=== PATIENT | male | born 1995 | race Caucasian/White ===

== ENCOUNTER → 2016-12-31 | Outpatient (CLI) | payer BC, MEDICAID ==
[~2016-12-31] MED LIST: ABILIFMAIN300; ABILIFY2 MG PO; CIPRO 500MG TA500 MG PO; CORTISPORIN OTI10 ML OT; NO HOME MEDICATIONS; RISPERDAL 1M1 MG/TAB PO; [UNRECOGNIZED DRUG - REMARK]
== END ==
LOC: BHSO 12:46
DX: F20.89 Other schizophrenia (principal)

== ENCOUNTER → 2017-01-29 | Outpatient (CLI) | payer BC, MEDICAID | LOC: BHSO 12:52 | DX: F20.9 Schizophrenia, unspecified (principal) ==

== ENCOUNTER → 2017-02-28 | Outpatient (CLI) | payer BC, MEDICAID | LOC: BHSO 11:06 | DX: F20.89 Other schizophrenia (principal) ==

== ENCOUNTER → 2017-04-01 | Outpatient (CLI) | payer BC, MEDICAID | LOC: BHSO 14:03 | DX: F20.9 Schizophrenia, unspecified (principal) ==

== ENCOUNTER → 2017-04-02 | Outpatient (CLI) | payer BC, MEDICAID | LOC: BHSO 15:34 | DX: F20.9 Schizophrenia, unspecified (principal) ==

== ENCOUNTER 2017-04-13 21:40 | Emergency (ER) | payer BC, MEDICAID ==
[~2017-04-13] VITALS: Ht 182.9 cm; Wt 75.5 kg
[~2017-04-13 21:40] MED LIST changes: -ABILIFMAIN300; -ABILIFY2 MG PO; -CORTISPORIN OTI10 ML OT; -[UNRECOGNIZED DRUG - REMARK]
[2017-04-13 21:41] VITALS: BP 103/60; TEMP 98
[2017-04-13] MEDS ORDERED: [UNRECOGNIZED DRUG - REMARK] (21:46)
[2017-04-13 22:20] VITALS: PULSE 126
== END 2017-04-13 22:33 | disposition home or self-care (01) ==
LOC: COL.ER 21:40
DX: T16.2XXA Foreign body in left ear, initial encounter (principal)

== ENCOUNTER → 2017-05-27 | Outpatient (CLI) | payer BC, MEDICAID ==
[~2017-05-27] MED LIST changes: +ABILIFMAIN300; +ABILIFY2 MG PO; +CORTISPORIN OTI10 ML OT; +[UNRECOGNIZED DRUG - REMARK]
== END ==
LOC: BHSO 13:15
DX: F20.9 Schizophrenia, unspecified (principal)

== ENCOUNTER 2017-05-31 05:37 | Emergency (ER) | payer BC, MEDICAID ==
[~2017-05-31] VITALS: Ht 182.9 cm; Wt 72.7 kg
[~2017-05-31 05:37] MED LIST changes: -ABILIFMAIN300; -ABILIFY2 MG PO; -CORTISPORIN OTI10 ML OT
[2017-05-31] MEDS ORDERED: ABILIFY2 MG PO (05:41)
[2017-05-31] MEDS ORDERED: ABILIFMAIN300 (05:42)
[2017-05-31] MEDS ORDERED: CORTISPORIN OTI10 ML OT (06:25)
[2017-05-31 06:36] VITALS: BP 112/78; PULSE 63; TEMP 97.8
== END 2017-05-31 06:36 | disposition home or self-care (01) ==
LOC: COL.ER 05:37
DX: H60.91 Unspecified otitis externa, right ear (principal); H61.21 Impacted cerumen, right ear; F17.210 Nicotine dependence, cigarettes, uncomplicated; F12.90 Cannabis use, unspecified, uncomplicated; F20.9 Schizophrenia, unspecified; F31.9 Bipolar disorder, unspecified; J45.909 Unspecified asthma, uncomplicated; Z98.890 Other specified postprocedural states

== ENCOUNTER 2017-06-21 17:59 | Emergency (ER) | payer BC, MEDICAID ==
[~2017-06-21] VITALS: Ht 182.9 cm; Wt 72.7 kg
[~2017-06-21 17:59] MED LIST changes: +ABILIFMAIN300; +ABILIFY2 MG PO; +CORTISPORIN OTI10 ML OT
[2017-06-21 18:05] VITALS: BP 115/57; TEMP 98.7
[2017-06-21 18:40] VITALS: PULSE 59
== END 2017-06-21 18:41 | disposition home or self-care (01) ==
LOC: COL.ER 17:59
DX: N49.2 Inflammatory disorders of scrotum (principal)

== ENCOUNTER → 2017-06-27 | Outpatient (CLI) | payer BC, MEDICAID | LOC: BHSO 12:59 | DX: Z01.89 Encounter for other specified special examinations (principal) ==

== ENCOUNTER → 2017-07-25 | Outpatient (CLI) | payer BC, MEDICAID | LOC: BHSO 13:02 | DX: Z01.89 Encounter for other specified special examinations (principal) ==

== ENCOUNTER → 2017-08-22 | Outpatient (CLI) | payer BC, MEDICAID | LOC: BHSO 13:00 | DX: Z01.89 Encounter for other specified special examinations (principal) ==

== ENCOUNTER → 2017-09-23 | Outpatient (CLI) | payer BC, MEDICAID | LOC: BHSO 08:52 | DX: F20.9 Schizophrenia, unspecified (principal) ==

== ENCOUNTER → 2017-10-28 | Outpatient (CLI) | payer BC, MEDICAID | LOC: BHSO 12:34 | DX: F20.9 Schizophrenia, unspecified (principal) ==

== ENCOUNTER → 2017-11-28 | Outpatient (CLI) | payer BC, MEDICAID | LOC: BHSO 14:09 | DX: F20.9 Schizophrenia, unspecified (principal) ==

== ENCOUNTER → 2018-01-01 | Outpatient (CLI) | payer BC, MEDICAID | LOC: BHSO 13:23 | DX: F20.9 Schizophrenia, unspecified (principal) ==

== ENCOUNTER → 2018-01-29 | Outpatient (CLI) | payer BC, MEDICAID | LOC: BHSO 13:47 | DX: F20.9 Schizophrenia, unspecified (principal) ==

== ENCOUNTER → 2018-02-26 | Outpatient (CLI) | payer BC, MEDICAID | LOC: BHSO 13:54 | DX: F20.9 Schizophrenia, unspecified (principal) ==

== ENCOUNTER → 2018-03-10 | Outpatient (CLI) | payer BC, MEDICAID | LOC: BHSO 14:15 | DX: F20.9 Schizophrenia, unspecified (principal) | CPT/HCPCS: G0463 ==

== ENCOUNTER → 2018-03-26 | Outpatient (CLI) | payer BC, MEDICAID | LOC: BHSO 13:14 | DX: F20.9 Schizophrenia, unspecified (principal) ==

== ENCOUNTER → 2018-04-23 | Outpatient (CLI) | payer BC, MEDICAID | LOC: BHSO 13:20 | DX: F20.9 Schizophrenia, unspecified (principal) ==

== ENCOUNTER → 2018-05-28 | Outpatient (CLI) | payer BC, MEDICAID | LOC: BHSO 10:09 | DX: F20.9 Schizophrenia, unspecified (principal) ==

== ENCOUNTER → 2018-06-25 | Outpatient (CLI) | payer BC, MEDICAID | LOC: BHSO 13:06 | DX: F20.9 Schizophrenia, unspecified (principal) ==

== ENCOUNTER → 2018-07-23 | Outpatient (CLI) | payer MEDICARE, MEDICAID, BC | LOC: BHSO 13:46 | DX: F20.9 Schizophrenia, unspecified (principal) ==

== ENCOUNTER → 2018-08-24 | Outpatient (CLI) | payer BC, MEDICARE, MEDICAID | LOC: BHSO 13:30 | DX: F20.9 Schizophrenia, unspecified (principal) ==

== ENCOUNTER → 2018-09-24 | Outpatient (CLI) | payer BC, MEDICARE, MEDICAID | LOC: BHSO 14:20 | DX: F20.9 Schizophrenia, unspecified (principal) ==

== ENCOUNTER → 2018-09-25 | Outpatient (CLI) | payer BC, MEDICARE, MEDICAID | LOC: BHSO 11:01 | DX: F20.9 Schizophrenia, unspecified (principal) | CPT/HCPCS: G0463 ==

== ENCOUNTER → 2018-11-26 | Outpatient (CLI) | payer BC, MEDICARE, MEDICAID | LOC: BHSO 14:09 | DX: F20.9 Schizophrenia, unspecified (principal) ==

== ENCOUNTER → 2019-01-20 | Outpatient (CLI) | payer BC, MEDICARE, MEDICAID | LOC: BHSO 14:47 | DX: F20.9 Schizophrenia, unspecified (principal) ==

== ENCOUNTER → 2019-02-18 | Outpatient (CLI) | payer BC, MEDICARE, MEDICAID | LOC: BHSO 10:42 | DX: F20.9 Schizophrenia, unspecified (principal) ==

== ENCOUNTER → 2019-03-18 | Outpatient (CLI) | payer BC, MEDICARE, MEDICAID | LOC: BHSO 13:47 | DX: F20.9 Schizophrenia, unspecified (principal) | CPT/HCPCS: G0463 ==

== ENCOUNTER → 2019-04-16 | Outpatient (CLI) | payer BC, MEDICARE, MEDICAID | LOC: BHSO 13:38 | DX: F20.9 Schizophrenia, unspecified (principal) ==

== ENCOUNTER → 2019-05-24 | Outpatient (CLI) | payer BC, MEDICARE, MEDICAID | LOC: BHSO 15:48 | DX: F20.9 Schizophrenia, unspecified (principal) ==

== ENCOUNTER → 2019-06-25 | Outpatient (CLI) | payer BC, MEDICARE, OTHER | LOC: BHSO 14:24 | DX: F20.9 Schizophrenia, unspecified (principal) | CPT/HCPCS: G0463 ==

== ENCOUNTER → 2019-07-28 | Outpatient (CLI) | payer BC, MEDICARE | LOC: BHSO 15:54 | DX: F25.9 Schizoaffective disorder, unspecified (principal) ==

== ENCOUNTER → 2019-08-26 | Outpatient (CLI) | payer BC, MEDICARE | LOC: BHSO 16:16 | DX: F20.9 Schizophrenia, unspecified (principal) ==

== ENCOUNTER → 2019-09-23 | Outpatient (CLI) | payer BC, MEDICARE | LOC: BHSO 15:56 | DX: F20.9 Schizophrenia, unspecified (principal) ==

== ENCOUNTER → 2019-10-21 | Outpatient (CLI) | payer BC, MEDICARE | LOC: BHSO 15:55 | DX: F20.9 Schizophrenia, unspecified (principal) ==

== ENCOUNTER → 2019-11-19 | Outpatient (CLI) | payer BC, MEDICARE | LOC: BHSO 15:51 | DX: F20.9 Schizophrenia, unspecified (principal) ==

== ENCOUNTER → 2019-12-16 | Outpatient (CLI) | payer BC, MEDICARE | LOC: BHSO 15:39 | DX: F20.9 Schizophrenia, unspecified (principal) ==

== ENCOUNTER → 2019-12-31 | Outpatient (CLI) | payer BC, MEDICARE | LOC: BHSO 14:58 | DX: F20.9 Schizophrenia, unspecified (principal) | CPT/HCPCS: G0463 ==

== ENCOUNTER → 2020-01-13 | Outpatient (CLI) | payer MEDICARE | LOC: BHSO 16:36 | DX: F20.9 Schizophrenia, unspecified (principal) ==

== ENCOUNTER → 2020-02-10 | Outpatient (CLI) | payer BC, MEDICARE | LOC: BHSO 14:42 | DX: F20.9 Schizophrenia, unspecified (principal) ==

== ENCOUNTER → 2020-03-13 | Outpatient (CLI) | payer MEDICARE, MEDICAID | LOC: BHSO 14:20 | DX: F20.9 Schizophrenia, unspecified (principal) ==

== ENCOUNTER → 2020-05-31 | Outpatient (CLI) | payer MEDICARE, MEDICAID | LOC: BHSO 15:40 | DX: F20.9 Schizophrenia, unspecified (principal) | CPT/HCPCS: G0463 ==

== ENCOUNTER → 2020-08-25 | Outpatient (CLI) | payer MEDICARE, MEDICAID | LOC: BHSO 09:38 | DX: F20.9 Schizophrenia, unspecified (principal) | CPT/HCPCS: G0463 ==

== ENCOUNTER 2022-04-01 23:02 | Emergency (ER) | payer MEDICARE, MEDICAID ==
[~2022-04-01] VITALS: Ht 182.9 cm; Wt 63.6 kg
[2022-04-01 23:12] VITALS: TEMP 97.5
[2022-04-01 23:34] LABS: BASO # 0.1 K/mm3 (0.0-0.2); BASO % 0.4 % (0.0-2.0); EOS # 0.1 K/mm3 (0.0-0.7); EOS % 0.9 % (0.0-4.0); GRAN # 8.7 K/mm3 (1.4-6.5); GRAN % 66.9 % (42.2-75.2); HEMATOCRIT 41.3 % (42.0-52.0); HEMOGLOBIN 13.8 g/dl (13.5-18.0); LYMPH # 2.7 K/mm3 (1.2-3.4); LYMPH % 21.2 % (20.0-51.0); MEAN CELL VOLUME 90 fl (80.0-100.0); MEAN CORPUSCULAR HEMOGLOBIN 30 pg (27-31); MEAN CORPUSCULAR HGB CONC 33 g/dl (33.0-37.0); MEAN PLATELET VOLUME 9.5 fl (7.4-10.4); MONO # 1.3 K/mm3 (0.1-0.6); MONO % 10.1 % (1.7-9.3); PLATELET COUNT 323 K/mm3 (130-400); RED BLOOD COUNT 4.59 M/mm3 (4.20-5.60); REDCELL DISTRIBUTION WIDTH-CV 13.2 % (11.5-14.5)
[2022-04-01 23:52] LABS: ACETAMINOPHEN < 1.0 ug/mL (10-30); ALANINE AMINOTRANSFERASE 14 U/L (0-55); ALBUMIN 4.4 gm/dL (3.5-5.0); ALCOHOL(ethanol),MEDICAL < 10 mg/dL (0-10); ALKALINE PHOSPHATASE 69 U/L (40-150); ANION GAP 14 mmol/L (7-16); AST,SGOT 16 U/L (5-34); BILIRUBIN,TOTAL 0.4 mg/dL (0.2-1.2); BLOOD UREA NITROGEN 19 mg/dL (9-21); CARBON DIOXIDE 22 mmol/L (22-29); CHLORIDE 108 mmol/L (98-107); CREATININE, serum 0.95 mg/dL (0.72-1.25); GLUCOSE 121 mg/dL (70-99); POTASSIUM 3.4 mmol/L (3.5-4.5); SALICYLATE < 5.0 mg/dL (15.0-30.0); SODIUM 144 mmol/L (136-145); TOTAL PROTEIN 6.8 gm/dL (6.2-8.1)
[2022-04-02 01:58] LABS: COLLECTION METHOD CLEAN CATCH
[2022-04-02 02:12] LABS: MUCOUS Present (NOT PRESENT); PH 5 (5-8); SQUAMOUS EPITHELIAL None Seen /hpf (0-10); URINE APPEARANCE Clear (CLEAR/HAZY); URINE BACTERIA None Seen /hpf (NONE SEEN); URINE BILIRUBIN Negative (NEGATIVE); URINE BLOOD 1+ (NEGATIVE); URINE COLOR Yellow (YELLOW); URINE GLUCOSE Negative (NEGATIVE); URINE KETONE Trace (NEGATIVE); URINE LEUKOCYTE ESTERASE Negative (NEGATIVE); URINE NITRATE Negative (NEGATIVE); URINE PROTEIN(semi-quant) Negative (NEGATIVE); URINE UROBILINOGEN Negative (NEGATIVE)
[2022-04-02 02:13] LABS: TRICYCLIC ANTIDEPRESS URINE NEGATIVE
[2022-04-02 02:13] LABS: TSH w REFLEX 1.265 uIU/mL (0.350-4.940)
[2022-04-02 06:38] VITALS: BP 128/78; PULSE 76
== END 2022-04-02 06:38 | disposition home or self-care (01) ==
LOC: COL.ER 23:02
PROVIDERS: Emergency Medicine
DX: F29 Unspecified psychosis not due to a substance or known physiological condition (principal); R00.0 Tachycardia, unspecified; Z28.310 Unvaccinated for COVID-19
CPT/HCPCS: J1630; J2060